=== PATIENT | female | born 1960 ===

== ENCOUNTER 2018-04-01 09:58 | Day surgery (SDC) | payer OTHER | END 2018-04-01 15:15 | disposition home or self-care (01) | LOC: AMB-ENDOS 09:58 → CIR.AMB 13:00 → AMB-ENDOS 15:15 | DX: K57.30 Diverticulosis of large intestine without perforation or abscess without bleeding (principal); Z86.010 Personal history of colon polyps; K64.8 Other hemorrhoids ==